=== PATIENT | female | born 1960 | race Caucasian/White ===

== ENCOUNTER 2020-06-27 16:16 | Emergency (ER) | payer OTHER ==
[~2020-06-27] VITALS: Ht 177.8 cm; Wt 90.7 kg
[~2020-06-27 16:16] MED LIST: ASPI81CH; CETI5; Crestor20 MG PO; ERGO50000 PO; FOLI1 PO; MECL25 PO; NAPR500 PO; Norco 5-325 Ta1 EACH PO; Prinivil10 MG PO
== END 2020-06-27 17:10 | disposition home or self-care (01) ==
LOC: ER 16:16
DX: S93.401A Sprain of unspecified ligament of right ankle, initial encounter (principal); E78.5 Hyperlipidemia, unspecified; Z79.899 Other long term (current) drug therapy; W19.XXXA Unspecified fall, initial encounter
CPT/HCPCS: 29505; 73610; 99283-25

== ENCOUNTER 2022-07-07 06:32 | Day surgery (SDC) | payer MEDICARE, OTHER ==
[~2022-07-07] VITALS: Ht 175.3 cm; Wt 82.6 kg
== END 2022-07-07 09:16 | disposition home or self-care (01) ==
LOC: ORSCSDS 06:32
DX: Z12.11 Encounter for screening for malignant neoplasm of colon (principal); Z86.010 Personal history of colon polyps; Z80.0 Family history of malignant neoplasm of digestive organs; K63.5 Polyp of colon; K57.30 Diverticulosis of large intestine without perforation or abscess without bleeding; K64.8 Other hemorrhoids; Z79.899 Other long term (current) drug therapy
CPT/HCPCS: 88305; J2250; J2704; J7120

== ENCOUNTER 2024-01-19 07:39 | Day surgery (SDC) | payer MEDICARE, OTHER ==
[~2024-01-19] VITALS: Ht 177.8 cm; Wt 88.8 kg
[2024-01-19] VITALS (16 sets, daily range): BP systolic 113–153; BP diastolic 60–86
[~2024-01-19 07:39] MED LIST changes: +Lactated Ringer's 1,000 ML IV SCH; +ONDA4 PO; +PANT40 PO
--- NOTE | 2024-01-19 08:35 | NUR ---
Ambulatory in Day Surgery Patient confirms NPO status and agrees with scheduled surgery. Pre-Op teaching done. Pt verbalizes understanding. History, Chart, Medications and Allergies reviewed before start of procedure.Patient States Post-Procedure ride home has been arranged.
[2024-01-19] MEDS ORDERED: APAP500 MG (08:46)
[2024-01-19] MEDS ORDERED: CELE200 (08:47)
[2024-01-19] MEDS ORDERED: propofoL 40 ML IV ONE (09:02)
--- NOTE | 2024-01-19 09:11 | NUR ---
01/19/24 0911 Ariel Rodriguez HISTORY, CHART, MEDICATIONS AND ALLERGIES REVIEWED BEFORE START OF PROCEDURE. PATIENT CONFIRMS NPO STATUS AND AGREES WITH SCHEDULED PROCEDURE. 3-LEAD EKG REVIEWED WITH PHYSICIAN PRIOR TO START OF PROCEDURE. MONITOR INTACT WITH CONTINUOUS PULSE OXIMETRY,CAPNOGRAPHY, 3-LEAD EKG, INTERMITTENT BP. SUPPLEMENTAL O2 TO BE TITRATED THROUGHOUT PROCEDURE TO MAINTAIN O2 SATURATION ABOVE 90%. PATIENT DETERMINED TO BE ASA APPROPRIATE FOR PROPOFOL SEDATION PRIOR TO START OF PROCEDURE BY DR. CALLAHAN.
--- NOTE | 2024-01-19 09:54 | NUR ---
IV DC'D INTACT. REVIEWED DISCHARGE INSTRUCTIONS WITH PATIENT. SHE VERBALIZED UNDERSTANDING. NO ACUTE DISTRESS OR C/O - PT TOLERATED COFFEE. TRANSFERED TO W/C WITH STEADY GAIT. HOME WITH SON AND OUT OF DEPARTMENT VIA W/C.
== END 2024-01-19 09:52 | disposition home or self-care (01) ==
LOC: ORSCMMR 07:39 → ORD 09:00 → ORSCMMR 09:00
PROVIDERS: Internal Medicine Gastroenterology
PROC: 0DBN8ZX Excision of Sigmoid Colon, Via Natural or Artificial Opening Endoscopic, Diagnostic (ICD-10-PCS; principal; 2024-01-19 09:00)
PROC: 0DBK8ZX Excision of Ascending Colon, Via Natural or Artificial Opening Endoscopic, Diagnostic (ICD-10-PCS; principal; 2024-01-19 09:00)
PROC: 0DBL8ZX Excision of Transverse Colon, Via Natural or Artificial Opening Endoscopic, Diagnostic (ICD-10-PCS; principal; 2024-01-19 09:00)
DX: R19.4 Change in bowel habit (principal); Z86.010 Personal history of colon polyps; R11.0 Nausea; Z79.899 Other long term (current) drug therapy
CPT/HCPCS: 88305; J2704; J7120

== ENCOUNTER 2025-07-17 07:56 | Emergency (ER) | payer MEDICARE ==
[~2025-07-17] VITALS: Ht 175.3 cm; Wt 85.3 kg
[~2025-07-17 07:56] MED LIST changes: +APAP500 MG; +CELE200; -Lactated Ringer's 1,000 ML IV SCH
[2025-07-17 09:56] VITALS: BP 150/76
== END 2025-07-17 10:18 | disposition home or self-care (01) ==
LOC: ER 07:56
DX: S90.32XA Contusion of left foot, initial encounter (principal); Z59.89 Other problems related to housing and economic circumstances; X58.XXXA Exposure to other specified factors, initial encounter
CPT/HCPCS: 73630; 99283-25